=== PATIENT | female | born 1955 | race Caucasian/White ===

== ENCOUNTER 2017-02-21 13:21 | Observation (INO) | payer OTHER ==
[~2017-02-21] VITALS: Ht 160 cm; Wt 69.5 kg
[2017-02-21] VITALS (9 sets, daily range): BP systolic 142–190; BP diastolic 70–102; PULSE 76–102; RESP 16–20; TEMP 98–98.4; O2SAT 97–100
[2017-02-21] MEDS ORDERED: AMLO2.5T PO (14:38)
[2017-02-21] MEDS ORDERED: LISI-515 PO (14:38)
--- NOTE | 2017-02-21 14:51 | PD ---
HPI Chief Complaint: Hypertension Time Seen by Provider: 14:33 Travel History International Travel<30 days: No Contact w/Intl Traveler<30days: No Traveled to known affect area: No History of Present Illness HPI 60-year-old female complains of chest pain. Patient has history hypertension and has been seen a physician for hypertension. Patient is taking lisinopril 20 mg daily. Patient was put on amlodipine 2.5 mg daily however stopped taking it 2 weeks ago because of side effect. Patient states that she started having intermittent anterior chest wall discomfort for the past year. Patient states that the pain started as burning pain and became pressure discomfort pain recently. Patient states the pain social with exertion. Patient states that the pain radiated to the neck and to the arms. Patient denies any history of diabetes or hyperlipidemia. Patient is a smoker. Patient has family history of heart disease. Patient states that she has mild chest wall discomfort now. Patient denies any coughing congestion fever chills. PFSH Past Medical History Hypertension: Yes Past Surgical History Section: Yes Social History Alcohol Use: Yes (rare) Tobacco Use: No Substance Use: No Allergies-Medications (Allergen,Severity, Reaction): Coded Allergies: Sulfa (Verified Allergy, Severe, Hives, 02/21/17) Reported Meds & Prescriptions Reported Meds & Active Scripts Active Reported Amlodipine (Amlodipine Besylate) 2.5 Mg Tab 2.5 Mg PO DAILY Lisinopril 20 Mg Tab 20 Mg PO DAILY Review of Systems General / Constitutional: No: Fever Eyes: No: Visual changes HENT: No: Headaches Cardiovascular: Positive: Chest Pain or Discomfort Respiratory: No: Shortness of Breath Gastrointestinal: No: Abdominal Pain Genitourinary: No: Dysuria Musculoskeletal: No: Pain Skin: No Rash Neurologic: No: Weakness Psychiatric: No: Depression Endocrine: No: Polydipsia Hematologic/Lymphatic: No: Easy Bruising Physical Exam Narrative GENERAL: Well-nourished, well-developed patient. SKIN: Focused skin assessment warm/dry. HEAD: Normocephalic. EYES: No scleral icterus. No injection or drainage. NECK: Supple, trachea midline. No JVD or lymphadenopathy. CARDIOVASCULAR: Regular rate and rhythm without murmurs, gallops, or rubs. RESPIRATORY: Breath sounds equal bilaterally. No accessory muscle use. GASTROINTESTINAL: Abdomen soft, non-tender, nondistended. MUSCULOSKELETAL: No cyanosis, or edema. BACK: Nontender without obvious deformity. No CVA tenderness. Neurologic exam normal. Data Data Last Documented VS Vital Signs Date Time Temp Pulse Resp B/P Pulse Ox O2 Delivery O2 Flow Rate FiO2 02/21/17 15:58 98 20 181/82 98 Room Air 02/21/17 13:23 98.0 Orders Electrocardiogram (02/21/17 ) Complete Blood Count With Diff (02/21/17 14:47) Comprehensive Metabolic Panel (02/21/17 14:47) Creatine Kinase (Cpk) (02/21/17 14:47) Troponin I (02/21/17 14:47) Prothrombin Time / Inr (Pt) (02/21/17 14:47) Act Partial Throm Time (Ptt) (02/21/17 14:47) Chest, Single Ap (02/21/17 14:47) Iv Access Insert/Monitor (02/21/17 14:47) Ecg Monitoring (02/21/17 14:47) Oximetry (02/21/17 14:47) Aspirin (Aspirin) (02/21/17 15:00) Labs Laboratory Tests Test 02/21/17 14:52 White Blood Count 11.5 TH/MM3 Red Blood Count 5.18 MIL/MM3 Hemoglobin 14.2 GM/DL Hematocrit 44.2 % Mean Corpuscular Volume 85.4 FL Mean Corpuscular Hemoglobin 27.4 PG Mean Corpuscular Hemoglobin 32.0 % Concent Red Cell Distribution Width 14.2 % Platelet Count 283 TH/MM3 Mean Platelet Volume 9.0 FL Neutrophils (%) (Auto) 76.2 % Lymphocytes (%) (Auto) 16.9 % Monocytes (%) (Auto) 6.3 % Eosinophils (%) (Auto) 0.3 % Basophils (%) (Auto) 0.3 % Neutrophils # (Auto) 8.8 TH/MM3 Lymphocytes # (Auto) 1.9 TH/MM3 Monocytes # (Auto) 0.7 TH/MM3 Eosinophils # (Auto) 0.0 TH/MM3 Basophils # (Auto) 0.0 TH/MM3 CBC Comment DIFF FINAL Differential Comment Prothrombin Time 10.4 SEC Prothromb Time International 0.9 RATIO Ratio Activated Partial 26.6 SEC Thromboplast Time Sodium Level 141 MEQ/L Potassium Level 4.1 MEQ/L Chloride Level 106 MEQ/L Carbon Dioxide Level 25.7 MEQ/L Anion Gap 9 MEQ/L Blood Urea Nitrogen 12 MG/DL Creatinine 0.82 MG/DL Estimat Glomerular Filtration 70 ML/MIN Rate Random Glucose 106 MG/DL Calcium Level 9.4 MG/DL Total Bilirubin 0.3 MG/DL Aspartate Amino Transf 21 U/L (AST/SGOT) Alanine Aminotransferase 27 U/L (ALT/SGPT) Alkaline Phosphatase 85 U/L Total Creatine Kinase 49 U/L Troponin I LESS THAN 0.02 NG/ML Total Protein 7.4 GM/DL Albumin 4.2 GM/DL MDM Medical Decision Making Medical Screen Exam Complete: Yes Emergency Medical Condition: Yes Interpretation(s) 1451 PM. EKG shows sinus rhythm nonspecific ST-T wave change. 1657 PM. CBC with WBC 11.5. 76 neutrophil. CMP within normal limit. Cardiac enzymes are normal. Differential Diagnosis Differential diagnosis including angina, DE, PE, pneumothorax. Narrative Course 61-year-old female with chest pain. History hypertension. Aspirin 325 mg by mouth given. Patient will be admitted to the chest pain center. Diagnosis Primary Impression: Chest pain Qualified Code: R07.9 - Chest pain, unspecified type Admitting Information Admitting Physician Requests: Observation Jose Tam MD Feb 21, 2017 14:51 Jose Tam MD Feb 21, 2017 14:51
[2017-02-21] MEDS ORDERED: ASPIRIN 325 MG TAB PO ONE (15:00)
--- NOTE | 2017-02-21 15:08 | EKG ---
Date Performed: 02/21/2017 Time Performed: 13:48:39 PTAGE: 61 years EKG: Sinus rhythm ARM LEADS REVERSED ATYPICAL ECG Would repeat electrocardiogram NO PREVIOUS TRACING DOCTOR: Rafal Ortiz Interpretating Date/Time 02/21/2017 15:07:29
[2017-02-21 15:37] LABS: AUTOMATED NEUTROPHIL # 8.8 TH/MM3 (1.8-7.7); BASOPHIL % 0.3 % (0.0-2.0); EOSINOPHIL % 0.3 % (0.0-4.0); HEMATOCRIT 44.2 % (35.0-46.0); HEMO FLAGS DIFF FINAL; LYMPH % 16.9 % (9.0-44.0); LYMPHOCYTE # 1.9 TH/MM3 (1.0-4.8); MEAN CELL VOLUME 85.4 FL (80.0-100.0); MEAN CORPUSCULAR HEMOGLOBIN 27.4 PG (27.0-34.0); MONO % 6.3 % (0.0-8.0); NEUT % 76.2 % (16.0-70.0); PLATELET COUNT 283 TH/MM3 (150-450); RED BLOOD COUNT 5.18 MIL/MM3 (4.00-5.30); RED CELL DISTRIBUTION WIDTH 14.2 % (11.6-17.2); WHITE BLOOD COUNT 11.5 TH/MM3 (4.0-11.0)
[2017-02-21 15:52] LABS: APTT (PATIENT) 26.6 SEC (24.3-30.1); INTERNATIONAL NORMALIZED RATIO 0.9 RATIO; PROTHROMBIN TIME - PATIENT 10.4 SEC (9.8-11.6)
[2017-02-21 15:56] LABS: ALT (GPT) 27 U/L (10-53); ANION GAP 9 MEQ/L (5-15); AST (GOT) 21 U/L (15-37); BICARBONATE 25.7 MEQ/L (21.0-32.0); BLOOD UREA NITROGEN 12 MG/DL (7-18); CHLORIDE 106 MEQ/L (98-107); GLOMERULAR FILTRATION RATE 70 ML/MIN (>89); POTASSIUM 4.1 MEQ/L (3.5-5.1); SODIUM (NA) 141 MEQ/L (136-145)
[2017-02-21 16:00] LABS: ALKALINE PHOSPHATASE 85 U/L (45-117); TOTAL BILIRUBIN ADULT 0.3 MG/DL (0.2-1.0)
[2017-02-21 16:13] LABS: CREATINE KINASE 49 U/L (26-192)
--- NOTE | 2017-02-21 16:58 | RADRPT ---
EXAM DATE/TIME: 02/21/2017 14:44 [facility] COMPARISON: No previous studies available for comparison. INDICATIONS : Chest pain. MEDICAL HISTORY : None. SURGICAL HISTORY : None. ENCOUNTER: Initial ACUITY: 2 weeks PAIN SCORE: 6/10 LOCATION: Bilateral chest FINDINGS: Well marginated airspace disease in the left lower lobe. Cardiomediastinal contours are within normal limits. S-shaped thoracolumbar scoliosis. Osseous structures are otherwise intact. CONCLUSION: 1. Well marginated left lower lobe airspace disease, likely atelectasis/scarring. 2. Otherwise, no acute cardiopulmonary disease. Raman Vigil MD on February 21, 2017 at 16:54 Board Certified Radiologist. This report was verified electronically.
[2017-02-21] MEDS ORDERED: SODIUM CHLORIDE 0.9% FLUSH 10 ML FLUSH IV FLUSH PRN (17:15)
[2017-02-21] MEDS ORDERED: ONDANSETRON HCL 4 MG/2 ML VIAL IV PRN (17:15)
[2017-02-21] MEDS ORDERED: NITROGLYCERIN 0.4 MG SL 25 TABS/BTL SL PRN (17:15)
[2017-02-21] MEDS ORDERED: ACETAMINOPHEN 500 MG CPLT PO PRN (17:15)
[2017-02-21 18:57] LABS: CREATINE KINASE 39 U/L (26-192)
[2017-02-21] MEDS: SODIUM CHLORIDE 0.9% FLUSH 10 ML FLUSH IV FLUSH SCH (21:00)
[2017-02-21 22:49] LABS: CREATINE KINASE 38 U/L (26-192)
[2017-02-22 00:47] VITALS: BP 144/74; PULSE 77; RESP 18; TEMP 97.8; O2SAT 98
[2017-02-22 03:18] VITALS: BP 115/63; PULSE 71; RESP 18; TEMP 98.3; O2SAT 99
[2017-02-22 07:41] VITALS: BP 149/70; PULSE 74; RESP 18; TEMP 97.6; O2SAT 98
[2017-02-22 08:00] VITALS: PULSE 69
[2017-02-22] MEDS: SODIUM CHLORIDE 0.9% FLUSH 10 ML FLUSH IV FLUSH SCH (08:21)
--- NOTE | 2017-02-22 09:53 | HHI.HP ---
[facility] Primary Care Physician Adry Fernández MD Chief Complaint Chest pain History of Present Illness This is a 61-year-old female that presents to ED with a complaint of chest pain and hypertension. Patient states that she has been having intermittent discomforts in the center of her chest for a year. It would usually only occur if she is walking in the heat but would use only last a few minutes and then go away. She was recently diagnosed with hypertension was placed on lisinopril 20 mg daily which wasn't really controlling her blood pressure as well as her physician wanted. Amlodipine 2.5 mg was added. Soon later patient began having a constant chest pain 2 weeks ago. Was a same type discomfort however it would not go away. She has had a constantly for 2 weeks. She states walking and he does seem to bother it. Otherwise nothing changes. Her doctor took her off the amlodipine about 5 days ago but the discomfort has persisted. She brought her long of her blood pressure readings in the last 3 days the highest pressure reading had a systolic in the 150s. She was hypertensive when she arrived in the ED yesterday 190/102 but around 3:00 this morning was 115/63 without medication. She's had occasional shortness of breath with her symptoms. Occasional diaphoresis. One episode of nausea which was yesterday. Denies recent illness. Denies fevers or chills. Review of Systems General: Patient denies fevers, chills recent, and recent travel HEENT: Patient denies headache, sore throat, difficulty swallowing. Cardiovascular: Has the chest discomfort as mentioned above. Denies sensation of heart beating rapidly or irregularly. No syncope. Occasional diaphoresis. Respiratory: She has been short of breath when she walks outside in the heat. Denies inspirational chest discomfort. Denies coughing wheezing or hemoptysis. GI: She was nauseous for the first time yesterday. Patient denies vomiting, diarrhea, abdominal pain, bloody stools. Musculoskeletal: Patient denies joint pain or edema. Denies calf pain or edema. Neurovascular: Patient denies numbness, tingling, weakness in extremities. Denies headache. Endocrine: Denies polyuria and polydipsia. Hematologic: Denies easy bruising. Skin: Denies rash or itching. Past Family Social History Allergies: Coded Allergies: Sulfa (Verified Allergy, Severe, Hives, 02/21/17) Past Medical History Recently diagnosed with hypertension. Denies hyperlipidemia diabetes and CAD. She is a past smoker but quit smoking 15 years ago. Past Surgical History . Reported Medications Reported Meds & Active Scripts Active Reported Amlodipine (Amlodipine Besylate) 2.5 Mg Tab 2.5 Mg PO DAILY Lisinopril 20 Mg Tab 20 Mg PO DAILY Active Ordered Medications Current Medications Medications (Trade) Dose Ordered Sig/Iliana Route Start Time Stop Time Status Last Admin (NS Flush) 2 ml UNSCH PRN IV FLUSH 02/21/17 17:15 (NS Flush) 2 ml BID IV FLUSH 02/21/17 21:00 02/22/17 08:21 (Tylenol) 500 mg Q4H PRN PO 02/21/17 17:15 (Zofran Inj) 4 mg Q6H PRN IV 02/21/17 17:15 (Nitrostat Sl) 0.4 mg Q5M PRN SL 02/21/17 17:15 (Prinivil) 20 mg DAILY PO 02/22/17 10:00 Family History Her father passed way suddenly of a myocardial infarction at age 52. Social History Patient quit smoking 15 years ago but prior that she smoked one pack of cigarettes daily for 20 years. Denies alcohol or illicit drugs. Physical Exam Vital Signs Vital Signs Date Time Temp Pulse Resp B/P Pulse Ox O2 Delivery O2 Flow Rate FiO2 02/22/17 08:00 69 02/22/17 07:41 97.6 74 18 149/70 98 02/22/17 03:18 98.3 71 18 115/63 99 02/22/17 00:47 97.8 77 18 144/74 98 02/21/17 22:01 91 02/21/17 22:00 91 02/21/17 19:47 98.4 84 18 142/72 97 02/21/17 18:08 98.1 82 16 146/70 98 02/21/17 17:35 76 20 150/80 98 Room Air 02/21/17 15:58 98 20 181/82 98 Room Air 02/21/17 14:40 96 18 173/81 100 Room Air 02/21/17 14:35 18 98 Room Air 02/21/17 13:23 98.0 102 20 190/102 99 Room Air Physical Exam GENERAL: This is a well-nourished, well-developed patient, in no apparent distress. Patient speaks in clear complete sentences. Patient is pleasant. HEENT: Head is atraumatic and normocephalic. Neck is supple without lymphadenopathy and trachea is midline. No JVD or carotid bruits. CARDIOVASCULAR: Regular rate and rhythm without murmurs, gallops, or rubs. RESPIRATORY: Clear to auscultation. Breath sounds equal bilaterally. No wheezes , rales, or rhonchi. Chest wall is tender but is not really worsening the symptoms that she has had constantly for 2 weeks.. No use of accessory muscles. GASTROINTESTINAL: Abdomen is nontender, nondistended. Abdomen soft. No obvious pulsatile mass or bruit. No CVA tenderness. Strong femoral pulses bilaterally. Normal bowel sounds in all quadrants. MUSCULOSKELETAL: Patient is moving upper and lower extremities freely. No calf tenderness or edema, no Homans sign. Strong pulses in upper and lower extremities. NEUROLOGICAL: Patient is alert and oriented. Cranial nerves 2-12 are grossly intact. No focal deficits and speech is clear. SKIN: No rash and turgor is normal. Laboratory Laboratory Tests Test 02/21/17 02/21/17 02/21/17 14:52 17:50 21:20 White Blood Count 11.5 Red Blood Count 5.18 Hemoglobin 14.2 Hematocrit 44.2 Mean Corpuscular Volume 85.4 Mean Corpuscular Hemoglobin 27.4 Mean Corpuscular Hemoglobin 32.0 Concent Red Cell Distribution Width 14.2 Platelet Count 283 Mean Platelet Volume 9.0 Neutrophils (%) (Auto) 76.2 Lymphocytes (%) (Auto) 16.9 Monocytes (%) (Auto) 6.3 Eosinophils (%) (Auto) 0.3 Basophils (%) (Auto) 0.3 Neutrophils # (Auto) 8.8 Lymphocytes # (Auto) 1.9 Monocytes # (Auto) 0.7 Eosinophils # (Auto) 0.0 Basophils # (Auto) 0.0 CBC Comment DIFF FINAL Differential Comment Prothrombin Time 10.4 Prothromb Time International 0.9 Ratio Activated Partial 26.6 Thromboplast Time Sodium Level 141 Potassium Level 4.1 Chloride Level 106 Carbon Dioxide Level 25.7 Anion Gap 9 Blood Urea Nitrogen 12 Creatinine 0.82 Estimat Glomerular Filtration 70 Rate Random Glucose 106 Calcium Level 9.4 Total Bilirubin 0.3 Aspartate Amino Transf 21 (AST/SGOT) Alanine Aminotransferase 27 (ALT/SGPT) Alkaline Phosphatase 85 Total Creatine Kinase 49 39 38 Troponin I LESS THAN 0.02 LESS THAN 0.02 LESS THAN 0.02 Total Protein 7.4 Albumin 4.2 Result Diagram: 02/21/17 1452 02/21/17 1452 Imaging Last 48 hours Impressions Chest X-Ray 02/21/17 1447 Signed Impressions: Service Date/Time: Tuesday, February 21, 2017 14:44 - CONCLUSION: 1. Well marginated left lower lobe airspace disease, likely atelectasis/scarring. 2. Otherwise, no acute cardiopulmonary disease. Raman Vigil MD Course Initial EKG has limb reversal. Sinus rhythm. No significant ST segment depressions or elevations. Second and third EKG has sinus rhythm without significant ST segment depressions or elevations. Assessment and Plan Assessment and Plan * Chest pain: Patient has had serial cardiac enzymes and EKGs for ruling out purposes. Her discomfort is atypical. She will be seen by Dr. Nath cardiology in the chest pain center. She will undergo a Rob protocol ETT and will likely be discharged home if her stress test is nonischemic. * Hypertension: We'll resume her lisinopril 20 mg daily. We'll continue to monitor her vitals. Her blood pressures have improved since her arrival in the ED. Will discuss further with Dr. Nath. Patient is stable at this time. She is agreeable to this plan. Thierno Riley Feb 22, 2017 09:53
[2017-02-22] MEDS ORDERED: LISINOPRIL 20 MG TAB PO SCH (10:00)
--- NOTE | 2017-02-22 11:15 | EKG ---
Date Performed: 02/21/2017 Time Performed: 21:23:29 PTAGE: 61 years EKG: Sinus rhythm NORMAL ECG Since PREVIOUS TRACING , no significant change noted PREVIOUS TRACIN02/21/2017 13.48 DOCTOR: Nupur Nath Interpretating Date/Time 02/22/2017 11:14:07
--- NOTE | 2017-02-22 11:19 | EKG ---
Date Performed: 02/21/2017 Time Performed: 17:44:41 PTAGE: 61 years EKG: Sinus rhythm POSSIBLE LEFT ATRIAL ENLARGEMENT BORDERLINE ECG Since PREVIOUS TRACING , no significant change noted DOCTOR: Nupur Nath Interpretating Date/Time 02/22/2017 11:17:13
--- NOTE | 2017-02-22 11:20 | TR ---
Date Performed: 02/22/2017 Time Performed: 10:09:10 DOCTOR: Nupur Nath DRUG LIST: CLINICAL HISTORY: REASON FOR TEST: REASON FOR ENDING: OBSERVATION: CONCLUSION: SHELLY PROTOCOL. CHEST DISCOMFORT DID NOT WORSEN. TEST STOPPED AFTER EXCEEDING GOAL H R SECONDARY TO SOB AND LEG FATIGUE.Maximum KH=292 Max HR Qytscxyj=503.0% Maximum LS=561/86 Total Exe rcise Time=3:00 COMMENTS:
--- NOTE | 2017-02-22 11:27 | HHI.DCPOC ---
Discharge Care Plan Diagnosis: (1) Chest pain (2) Hypertension Goals to Promote Your Health * To prevent worsening of your condition and complications * To maintain your health at the optimal level Directions to Meet Your Goals Take your medications as prescribed Follow your dietary instruction Follow activity as directed Keep your appointments as scheduled Take your immunizations and boosters as scheduled If your symptoms worsen call your PCP, if no PCP go to Urgent Care Center or Emergency Room Smoking is Dangerous to Your Health. Avoid second hand smoke Call the 24-hour hour crisis hotline for domestic abuse at Thierno Riley Feb 22, 2017 11:27
== END 2017-02-22 12:09 | disposition home or self-care (01) ==
LOC: NEPD 13:21 → NEDA 17:06 → NEPHCDU 18:08
PROVIDERS: ADMIT Internal Medicine Cardiovascular Disease; ATTEND Internal Medicine Cardiovascular Disease
DX: R07.89 Other chest pain (principal); I10 Essential (primary) hypertension; Z82.49 Family history of ischemic heart disease and other diseases of the circulatory system; F17.200 Nicotine dependence, unspecified, uncomplicated
CPT/HCPCS: 71010; 80053; 82550; 84484; 85025; 85610; 85730; 93005; 93017; 99285; G0378

== ENCOUNTER → 2017-03-25 | Outpatient (CLI) | payer OTHER ==
[~2017-03-25] MED LIST: LISI-515 PO
[2017-03-25 11:59] LABS: BLOOD GAS BASE EXCESS -1.3 mmol/L (-2-2); BLOOD GAS CARBOXYHEMOGLOBIN 1.1 % (0-4); BLOOD GAS HCO3 22 mmol/L (22-26); BLOOD GAS METHEMOGLOBIN 1.2 % (0-2); BLOOD GAS O2 HGB SATURATION 96 % (90-100); BLOOD GAS OXYGEN CONTENT 17.1 Vol % (12.0-20.0); BLOOD GAS PCO2 33 mmHg (38-42); BLOOD GAS PO2 97 mmHg (61-120); BLOOD GAS TOTAL HGB 12.7 G/DL (12.0-16.0); CRITICAL VALUE NO; DRAW SITE RT RADIAL; FIO2 21 %; NUMBER OF ARTERIAL PUNCTURES 1; STAT NO; TEMP CORR TO 98.6; ULNAR PULSE PRESENT
--- NOTE | 2017-03-29 10:16 | RSPPFT ---
DATE OF PROCEDURE: 03/25/17 COMMENTS: Spirometry shows FVC of 2.3 at 84% of predicted, FEV1 of 1.7 at 77%, FEV1/FVC ratio is normal. Flow is decreased at FEF 25, FEF 50, FEF 75 and FEF 25-75. There is a mild response after bronchodilator treatment. Lung volumes show residual volume is increased. TLC is normal. Diffusion capacity is decreased. Flow volume loop indicates terminal airways obstruction. Room air arterial blood gases show pH of 7.4, PCO2 of 33, PO2 97. 6-minute walk test shows no de-saturation. IMPRESSION: 1. Mild small airways obstructive lung disease. 2. Mild response after bronchodilator treatment. 3. Lung volumes show mild hyperinflation. 4. Diffusion capacity is decreased. 5. Blood gases show normal oxygenation.
== END ==
LOC: HRSP 10:43
PROVIDERS: ATTEND Specialist
DX: R06.00 Dyspnea, unspecified (principal)
CPT/HCPCS: 36600; 82805; 94060; 94620; 94726; 94729